=== PATIENT | female | born 1985 | race Caucasian/White ===

== ENCOUNTER 2019-07-17 15:02 | Emergency (ER) | payer MEDICARE ==
[2019-07-17] MEDS ORDERED: ACETAMINOPHEN EXTRA STRENGTH 500 MG TABLET ONE (15:44)
== END 2019-07-17 15:49 | disposition home or self-care (01) ==
LOC: EDH 15:02
DX: H60.91 Unspecified otitis externa, right ear (principal); F43.10 Post-traumatic stress disorder, unspecified; Z72.0 Tobacco use; Z88.1 Allergy status to other antibiotic agents